=== PATIENT | male | born 1950 | race Caucasian/White ===

== ENCOUNTER 2024-01-13 21:14 | Inpatient (IN) ==
[2024-01-13] MEDS ORDERED: IOPAMIDOL 100 ML BOTTLE IV ONE (21:15)
[2024-01-13] MEDS: 0.9 % SODIUM CHLORIDE 1,000 ML IV ONE (21:30)
[2024-01-13] MEDS: methylPREDNISolone SOD SUCC 125 MG/2 ML VIAL IV ONE (21:54)
[2024-01-13 23:11] LABS: ALT/SGPT < 5 U/L (<40); AST/SGOT 16 U/L (<40); Albumin 2.1 gm/dL (3.2-5.2); Albumin/Globulin Ratio 0.9 (1.0-2.3); Alkaline Phosphatase 131 U/L (39-117); Bilirubin,Total 0.8 mg/dL (0.1-1.0); Blood Urea Nitrogen 22 mg/dL (8-23); Calcium 7.6 mg/dL (8.6-10.4); Carbon Dioxide 15 mmol/L (22-30); Chloride 91 mmol/L (96-108); Globulin 2.4 gm/dL (2.2-3.7); Glomerular Filtration Rate 88; Glucose 289 mg/dL (70-105)
[2024-01-13 23:20] LABS: Basophils # (Auto) 0 K/mcL (0.00-0.30); Basophils % (Auto) 0 % (0.0-2.0); Eosinophils # (Auto) 0 K/mcL (0.00-0.70); Eosinophils % (Auto) 0 % (0.0-7.0); Hematocrit 31.1 % (40.1-51.0); Hemoglobin 9.9 g/dL (13.7-17.5); Lymphocytes # (Auto) 0.45 K/mcL (1.50-4.80); Lymphocytes % (Auto) 4.9 % (15.5-49.0); Mean Cell Volume 96.6 fL (80.0-100.0); Mean Corpuscular HGB Conc 31.8 g/dL (31.0-36.0); Mean Platelet Volume 8.9 fL (8.8-12.5); Monocytes # (Auto) 0.58 K/mcL (0.10-0.90); Monocytes % (Auto) 6.3 % (1.0-12.0); Neutrophils % (Auto) 83.6 % (38.0-78.0); Platelet Count 458 K/mcL (140-440); RBC 3.22 M/mcL (4.63-6.08); WBC 9.2 K/mcL (4.5-11.0)
[2024-01-13] MEDS: fentaNYL 100 MCG/2 ML VIAL IV ONE (23:24)
[2024-01-14] MEDS: cefTRIAXone 2 GM in DEXTROSE 5% IN WATER 50 ML IV ONE (01:16)
[2024-01-14] MEDS: AZITHROMYCIN 500 MG in DEXTROSE 5% IN WATER 250 ML IV ONE (01:45)
[2024-01-14] MEDS ORDERED: fentaNYL 100 MCG/2 ML VIAL IV PRN (01:47)
[2024-01-14] MEDS: 0.9 % SODIUM CHLORIDE 1,000 ML IV SCH (02:50)
[2024-01-14] MEDS: IPRATROPIUM/ALBUTEROL 3 ML AMPUL.NEB NEB PRN (07:37)
[2024-01-14] MEDS ORDERED: DEXTROSE 31 GM ORAL.SUSP PO PRN (08:40)
[2024-01-14] MEDS ORDERED: ONDANSETRON 4 MG/2 ML VIAL IV PRN (08:40)
[2024-01-14] MEDS ORDERED: DEXTROSE 50% 50 ML VIAL IV PRN (08:40)
[2024-01-14 09:48] LABS: Lactate Dehydrogenase 189 U/L (135-225)
[2024-01-14 10:13] LABS: Appearance,Urine Clear (Clear); Bilirubin,Urine Negative (Negative); Color,Urine Yellow; Culture Indicated,Urine No; Glucose,Urine (UA) 500 mg/dL (Negative); Ketones,Urine >=160 mg/dL (Negative); Leukocyte Esterase,Urine Negative /uL (Negative); Nitrate,Urine Negative (Negative); Protein,Urine Trace mg/dL (Negative); Urine Blood Negative ery/mcL (Negative); Urine RBC 0 /hpf (0-3); Urine Squamous Epithelial Cell 0 /hpf (0-4); Urine WBC 0 /hpf (0-4); Urobilinogen,Urine Normal
[2024-01-14] MEDS: LEVOTHYROXINE 25 MCG TABLET PO SCH (10:43)
[2024-01-14] MEDS: INSULIN, 75/25 NPL/LISPRO 1 UNIT/0.01 ML UNIT SQ SCH (10:43)
[2024-01-14] MEDS: ESCITALOPRAM 10 MG TABLET PO SCH (10:43)
[2024-01-14] MEDS: oxyCODONE IR 5 MG TABLET PO PRN (10:43)
[2024-01-14] MEDS: DOCUSATE SODIUM 100 MG CAPSULE PO SCH (10:43)
[2024-01-14] MEDS: LEVOTHYROXINE SODIUM 112 MCG TABLET PO SCH (10:43)
[2024-01-14] MEDS: morphine 4 MG/ML VIAL IV PRN (11:00)
[2024-01-14] MEDS: 0.9 % SODIUM CHLORIDE 10 ML SYRINGE IV SCH (13:14)
[2024-01-14] MEDS: INSULIN LISPRO 1 UNIT/0.01 ML UNIT SQ SCH (13:16)
[2024-01-14] MEDS: ENOXAPARIN 40 MG/0.4 ML SYRINGE SQ SCH (14:58)
[2024-01-14] MEDS: MIDAZOLAM 2 MG/2 ML VIAL IV ONE (15:15)
[2024-01-14] MEDS: fentaNYL 100 MCG/2 ML VIAL IV ONE (15:15)
[2024-01-14 15:43] LABS: Amylase,Pleural Fluid 1 U/L; Triglycerides,Body Fluid 15 mg/dl
[2024-01-14] MEDS ORDERED: IOPAMIDOL 100 ML BOTTLE IV ONE (16:08)
[2024-01-14 16:33] LABS: Crystals,Body Fluid None Seen (None Seen)
[2024-01-14 16:37] LABS: Glucose,Pleural Fluid 2 mg/dL
[2024-01-14] MEDS: FUROSEMIDE 20 MG/2 ML VIAL IV SCH (17:22)
[2024-01-14] MEDS: AZITHROMYCIN 500 MG in DEXTROSE 5% IN WATER 250 ML IV SCH (17:23)
[2024-01-14] MEDS: cefTRIAXone 1 GM VIAL IV SCH (17:23)
[2024-01-14 18:26] LABS: Appearance,Pleural Fluid Purulent; Color,Pleural Fluid White; Nucleated Cells,Pleural Fld 562800 /cumm
[2024-01-14] MEDS: ACETAMINOPHEN 325 MG TABLET PO PRN (19:22)
[2024-01-14] MEDS ORDERED: PRAZOSIN 2 MG CAPSULE PO SCH (21:00)
[2024-01-14] MEDS: LIDOCAINE 4% TOP PATCH TOPICAL SCH (21:04)
[2024-01-14] MEDS: SENNOSIDES 1 TABLET PO SCH (21:04)
[2024-01-15 06:17] LABS: Basophils # (Auto) 0 K/mcL (0.00-0.30); Basophils % (Auto) 0 % (0.0-2.0); Eosinophils # (Auto) 0 K/mcL (0.00-0.70); Eosinophils % (Auto) 0 % (0.0-7.0); Hematocrit 33.1 % (40.1-51.0); Lymphocytes # (Auto) 0.96 K/mcL (1.50-4.80); Lymphocytes % (Auto) 5.1 % (15.5-49.0); Mean Cell Volume 91.7 fL (80.0-100.0); Mean Corpuscular HGB Conc 33.2 g/dL (31.0-36.0); Mean Platelet Volume 8.7 fL (8.8-12.5); Monocytes # (Auto) 0.84 K/mcL (0.10-0.90); Monocytes % (Auto) 4.5 % (1.0-12.0); Platelet Count 540 K/mcL (140-440); RBC 3.61 M/mcL (4.63-6.08); Red Cell Distribution Width 14.2 % (11.5-14.5); WBC 18.7 K/mcL (4.5-11.0)
[2024-01-15 06:40] LABS: ALT/SGPT 6 U/L (<40); AST/SGOT 30 U/L (<40); Albumin 2.5 gm/dL (3.2-5.2); Albumin/Globulin Ratio 0.9 (1.0-2.3); Alkaline Phosphatase 142 U/L (39-117); Bilirubin,Total 0.4 mg/dL (0.1-1.0); Blood Urea Nitrogen 20 mg/dL (8-23); Carbon Dioxide 26 mmol/L (22-30); Chloride 92 mmol/L (96-108); Globulin 2.8 gm/dL (2.2-3.7); Glomerular Filtration Rate 93; Glucose 82 mg/dL (70-105)
[2024-01-15 07:27] LABS: Hemoglobin A1C 9.9 % Hgb (4.0-6.0)
[2024-01-15] MEDS: ONDANSETRON 4 MG/2 ML VIAL IV PRN ×2 (08:18→17:24)
[2024-01-15] MEDS ORDERED: DEXTROSE 50% 50 ML VIAL IV PRN (08:50)
[2024-01-15] MEDS ORDERED: DEXTROSE 31 GM ORAL.SUSP PO PRN (08:50)
[2024-01-15] MEDS: PANTOPRAZOLE 40 MG VIAL IV SCH (09:23)
[2024-01-15] MEDS: MAGNESIUM HYDROXIDE 30 ML ORAL.SUSP PO PRN (09:23)
[2024-01-15] MEDS: POTASSIUM CHLORIDE 20 MEQ in DEXTROSE 5% IN WATER 250 ML IV ONE (11:00)
[2024-01-15] MEDS: INSULIN LISPRO 1 UNIT/0.01 ML UNIT SQ SCH (12:14)
[2024-01-16 05:44] LABS: Basophils # (Auto) 0.01 K/mcL (0.00-0.30); Basophils % (Auto) 0.1 % (0.0-2.0); Eosinophils # (Auto) 0.01 K/mcL (0.00-0.70); Eosinophils % (Auto) 0.1 % (0.0-7.0); Hematocrit 30.9 % (40.1-51.0); Hemoglobin 10.3 g/dL (13.7-17.5); Lymphocytes # (Auto) 0.86 K/mcL (1.50-4.80); Lymphocytes % (Auto) 5.5 % (15.5-49.0); Mean Cell Volume 91.7 fL (80.0-100.0); Mean Corpuscular HGB Conc 33.3 g/dL (31.0-36.0); Mean Platelet Volume 8.5 fL (8.8-12.5); Monocytes # (Auto) 1.12 K/mcL (0.10-0.90); Monocytes % (Auto) 7.2 % (1.0-12.0); Neutrophils % (Auto) 82.7 % (38.0-78.0); Platelet Count 424 K/mcL (140-440); RBC 3.37 M/mcL (4.63-6.08); Red Cell Distribution Width 13.8 % (11.5-14.5); WBC 15.6 K/mcL (4.5-11.0)
[2024-01-16 06:00] LABS: ALT/SGPT 10 U/L (<40); AST/SGOT 28 U/L (<40); Albumin 2.4 gm/dL (3.2-5.2); Albumin/Globulin Ratio 0.9 (1.0-2.3); Alkaline Phosphatase 129 U/L (39-117); Bilirubin,Total 0.4 mg/dL (0.1-1.0); Blood Urea Nitrogen 17 mg/dL (8-23); Calcium 7.7 mg/dL (8.6-10.4); Carbon Dioxide 30 mmol/L (22-30); Chloride 89 mmol/L (96-108); Globulin 2.6 gm/dL (2.2-3.7); Glomerular Filtration Rate 99; Glucose 139 mg/dL (70-105)
[2024-01-16] MEDS: metroNIDAZOLE 500 MG/100 ML BAG IV SCH (09:38)
[2024-01-16] MEDS: HYDROcodone/APAP 10/325MG TABLET PO PRN (10:45)
[2024-01-17 06:58] LABS: ALT/SGPT 7 U/L (<40); AST/SGOT 23 U/L (<40); Albumin 2.3 gm/dL (3.2-5.2); Albumin/Globulin Ratio 0.9 (1.0-2.3); Alkaline Phosphatase 125 U/L (39-117); Bilirubin,Total 0.4 mg/dL (0.1-1.0); Blood Urea Nitrogen 18 mg/dL (8-23); Calcium 7.4 mg/dL (8.6-10.4); Carbon Dioxide 30 mmol/L (22-30); Chloride 88 mmol/L (96-108); Globulin 2.5 gm/dL (2.2-3.7); Glomerular Filtration Rate 99; Glucose 173 mg/dL (70-105)
[2024-01-17 07:20] LABS: Basophils # (Auto) 0.02 K/mcL (0.00-0.30); Basophils % (Auto) 0.2 % (0.0-2.0); Eosinophils # (Auto) 0.04 K/mcL (0.00-0.70); Eosinophils % (Auto) 0.3 % (0.0-7.0); Hematocrit 31.5 % (40.1-51.0); Hemoglobin 10.2 g/dL (13.7-17.5); Lymphocytes # (Auto) 0.64 K/mcL (1.50-4.80); Lymphocytes % (Auto) 5.1 % (15.5-49.0); Mean Cell Volume 93.5 fL (80.0-100.0); Mean Corpuscular HGB Conc 32.4 g/dL (31.0-36.0); Mean Platelet Volume 10.1 fL (8.8-12.5); Monocytes # (Auto) 0.75 K/mcL (0.10-0.90); Monocytes % (Auto) 5.9 % (1.0-12.0); Neutrophils % (Auto) 84.3 % (38.0-78.0); Platelet Count 303 K/mcL (140-440); RBC 3.37 M/mcL (4.63-6.08); Red Cell Distribution Width 13.8 % (11.5-14.5); WBC 12.6 K/mcL (4.5-11.0)
[2024-01-17] MEDS: SODIUM CHLORIDE 1 GM TABLET PO SCH (14:41)
[2024-01-18 06:12] LABS: Basophils # (Auto) 0.03 K/mcL (0.00-0.30); Basophils % (Auto) 0.2 % (0.0-2.0); Eosinophils # (Auto) 0.08 K/mcL (0.00-0.70); Eosinophils % (Auto) 0.6 % (0.0-7.0); Hemoglobin 10.2 g/dL (13.7-17.5); Lymphocytes # (Auto) 0.81 K/mcL (1.50-4.80); Lymphocytes % (Auto) 5.9 % (15.5-49.0); Mean Cell Volume 92.8 fL (80.0-100.0); Mean Corpuscular HGB Conc 32.9 g/dL (31.0-36.0); Mean Platelet Volume 8.5 fL (8.8-12.5); Monocytes # (Auto) 0.95 K/mcL (0.10-0.90); Monocytes % (Auto) 6.9 % (1.0-12.0); Neutrophils % (Auto) 81.6 % (38.0-78.0); Platelet Count 365 K/mcL (140-440); RBC 3.34 M/mcL (4.63-6.08); Red Cell Distribution Width 13.6 % (11.5-14.5); WBC 13.8 K/mcL (4.5-11.0)
[2024-01-18 07:46] LABS: ALT/SGPT 6 U/L (<40); AST/SGOT 18 U/L (<40); Albumin 2.3 gm/dL (3.2-5.2); Alkaline Phosphatase 110 U/L (39-117); Bilirubin,Total 0.4 mg/dL (0.1-1.0); Blood Urea Nitrogen 17 mg/dL (8-23); Calcium 7.3 mg/dL (8.6-10.4); Carbon Dioxide 31 mmol/L (22-30); Chloride 91 mmol/L (96-108); Globulin 2.4 gm/dL (2.2-3.7); Glomerular Filtration Rate 107; Glucose 126 mg/dL (70-105)
[2024-01-18] MEDS: traZODone HCL 100 MG TABLET PO PRN (19:11)
[2024-01-19 06:22] LABS: Hematocrit 29.2 % (40.1-51.0); Hemoglobin 9.8 g/dL (13.7-17.5); Mean Cell Volume 92.7 fL (80.0-100.0); Mean Corpuscular HGB Conc 33.6 g/dL (31.0-36.0); Mean Platelet Volume 8.4 fL (8.8-12.5); Platelet Count 338 K/mcL (140-440); RBC 3.15 M/mcL (4.63-6.08); Red Cell Distribution Width 13.7 % (11.5-14.5); WBC 13.6 K/mcL (4.5-11.0)
[2024-01-19 06:38] LABS: ALT/SGPT 7 U/L (<40); AST/SGOT 21 U/L (<40); Albumin 2.3 gm/dL (3.2-5.2); Alkaline Phosphatase 106 U/L (39-117); Bilirubin,Direct 0.2 mg/dL (<0.3); Bilirubin,Total 0.4 mg/dL (0.1-1.0); Blood Urea Nitrogen 17 mg/dL (8-23); Calcium 7.3 mg/dL (8.6-10.4); Carbon Dioxide 27 mmol/L (22-30); Chloride 92 mmol/L (96-108); Globulin 2.2 gm/dL (2.2-3.7); Glomerular Filtration Rate 107; Glucose 177 mg/dL (70-105); Lactate Dehydrogenase 149 U/L (135-225); Phosphorous 2.3 mg/dL (2.5-4.5); Triglycerides 87 mg/dL (<150); Uric Acid 2.7 mg/dL (2.5-8.0)
[2024-01-19 06:43] LABS: Band Neutrophils % 1 % (0-10); Eosinophils % (Manual) 1 % (0-7); Lymphocytes % 6 % (15-49); Monocytes % (Manual) 3 % (1-12); Platelet Estimate NORMAL (Normal); RBC Morphology NORMAL (Normal); Reactive Lymphocytes 2 % (0-2); Segmented Neutrophils % 87 % (38-78)
[2024-01-19 08:32] LABS: Thyroid Stimulating Hormone 2.78 uIU/mL (0.27-5.01)
[2024-01-19] MEDS ORDERED: IOPAMIDOL 100 ML BOTTLE IV ONE (08:47)
[2024-01-19 11:28] LABS: Sodium, Urine Random 97 mmol/L
[2024-01-19 11:43] LABS: Osmolality,Urine 650 mOSM/kg (80-1000)
[2024-01-20 07:07] LABS: ALT/SGPT 6 U/L (<40); AST/SGOT 19 U/L (<40); Albumin 2.1 gm/dL (3.2-5.2); Alkaline Phosphatase 92 U/L (39-117); Bilirubin,Direct < 0.2 mg/dL (0-0.3); Bilirubin,Total 0.4 mg/dL (0.1-1.0); Blood Urea Nitrogen 14 mg/dL (8-23); Calcium 7.4 mg/dL (8.6-10.4); Carbon Dioxide 28 mmol/L (22-30); Chloride 94 mmol/L (96-108); Globulin 2.2 gm/dL (2.2-3.7); Glomerular Filtration Rate 107; Glucose 154 mg/dL (70-105); Lactate Dehydrogenase 153 U/L (135-225); Phosphorous 2.4 mg/dL (2.5-4.5); Triglycerides 84 mg/dL (<150); Uric Acid 2.9 mg/dL (2.5-8.0)
[2024-01-20 07:35] LABS: Basophils # (Auto) 0.03 K/mcL (0.00-0.30); Basophils % (Auto) 0.3 % (0.0-2.0); Eosinophils # (Auto) 0.13 K/mcL (0.00-0.70); Eosinophils % (Auto) 1.3 % (0.0-7.0); Hematocrit 26.8 % (40.1-51.0); Hemoglobin 8.7 g/dL (13.7-17.5); Lymphocytes # (Auto) 1.24 K/mcL (1.50-4.80); Lymphocytes % (Auto) 12.3 % (15.5-49.0); Mean Cell Volume 94.4 fL (80.0-100.0); Mean Corpuscular HGB Conc 32.5 g/dL (31.0-36.0); Monocytes # (Auto) 0.87 K/mcL (0.10-0.90); Monocytes % (Auto) 8.6 % (1.0-12.0); Neutrophils % (Auto) 71.5 % (38.0-78.0); Platelet Count 315 K/mcL (140-440); RBC 2.84 M/mcL (4.63-6.08); Red Cell Distribution Width 14.3 % (11.5-14.5); WBC 10.1 K/mcL (4.5-11.0)
[2024-01-20] MEDS: SODIUM CHLORIDE 1 GM TABLET PO SCH (08:36)
[2024-01-21 07:12] LABS: Blood Urea Nitrogen 14 mg/dL (8-23); Calcium 7.5 mg/dL (8.6-10.4); Carbon Dioxide 29 mmol/L (22-30); Chloride 96 mmol/L (96-108); Glomerular Filtration Rate 107; Glucose 137 mg/dL (70-105)
[2024-01-21 07:52] LABS: Basophils # (Auto) 0.03 K/mcL (0.00-0.30); Basophils % (Auto) 0.3 % (0.0-2.0); Eosinophils # (Auto) 0.11 K/mcL (0.00-0.70); Hematocrit 26.7 % (40.1-51.0); Hemoglobin 8.8 g/dL (13.7-17.5); Lymphocytes # (Auto) 0.98 K/mcL (1.50-4.80); Lymphocytes % (Auto) 8.5 % (15.5-49.0); Mean Cell Volume 91.8 fL (80.0-100.0); Mean Platelet Volume 8.5 fL (8.8-12.5); Monocytes # (Auto) 0.93 K/mcL (0.10-0.90); Monocytes % (Auto) 8.1 % (1.0-12.0); Neutrophils % (Auto) 77.3 % (38.0-78.0); Platelet Count 367 K/mcL (140-440); RBC 2.91 M/mcL (4.63-6.08); Red Cell Distribution Width 14.4 % (11.5-14.5); WBC 11.5 K/mcL (4.5-11.0)
[2024-01-22 06:43] LABS: Eosinophils # (Auto) 0.08 K/mcL (0.00-0.70); Eosinophils % (Auto) 0.8 % (0.0-7.0); Hematocrit 26.8 % (40.1-51.0); Hemoglobin 8.7 g/dL (13.7-17.5); Lymphocytes # (Auto) 0.83 K/mcL (1.50-4.80); Lymphocytes % (Auto) 8.1 % (15.5-49.0); Mean Corpuscular HGB Conc 32.5 g/dL (31.0-36.0); Mean Platelet Volume 8.3 fL (8.8-12.5); Monocytes # (Auto) 0.76 K/mcL (0.10-0.90); Monocytes % (Auto) 7.4 % (1.0-12.0); Neutrophils % (Auto) 78.2 % (38.0-78.0); Platelet Count 380 K/mcL (140-440); RBC 2.82 M/mcL (4.63-6.08); Red Cell Distribution Width 14.7 % (11.5-14.5); WBC 10.3 K/mcL (4.5-11.0)
[2024-01-22 07:37] LABS: ALT/SGPT 7 U/L (<40); AST/SGOT 21 U/L (<40); Albumin 2.3 gm/dL (3.2-5.2); Alkaline Phosphatase 91 U/L (39-117); Bilirubin,Direct < 0.2 mg/dL (0-0.3); Bilirubin,Total 0.4 mg/dL (0.1-1.0); Blood Urea Nitrogen 14 mg/dL (8-23); Calcium 7.4 mg/dL (8.6-10.4); Carbon Dioxide 28 mmol/L (22-30); Chloride 95 mmol/L (96-108); Globulin 2.2 gm/dL (2.2-3.7); Glomerular Filtration Rate 107; Glucose 242 mg/dL (70-105); Lactate Dehydrogenase 189 U/L (135-225); Phosphorous 2.1 mg/dL (2.5-4.5); Triglycerides 81 mg/dL (<150); Uric Acid 2.6 mg/dL (2.5-8.0)
[2024-01-22] MEDS ORDERED: MELATONIN 3 MG TABLET PO SCH (19:00)
[2024-01-22] MEDS ORDERED: traZODone HCL 100 MG TABLET PO SCH (19:30)
== END 2024-01-22 15:55 | disposition short-term general hospital (02) | DRG 177 ==
LOC: ED 21:14 → ICU 01-14 02:19 → MEDSUR 01-17 18:11
PROVIDERS: ADMIT Internal Medicine; ATTEND Internal Medicine

== ENCOUNTER 2024-02-23 11:12 | Inpatient (IN) ==
[2024-02-23] MEDS ORDERED: IOPAMIDOL 100 ML BOTTLE IV ONE (11:13)
[2024-02-23] MEDS: morphine 4 MG/ML VIAL IV ONE (12:25)
[2024-02-23] MEDS: 0.9 % SODIUM CHLORIDE 1,000 ML IV ONE (12:25)
[2024-02-23 12:36] LABS: Basophils # (Auto) 0.06 K/mcL (0.00-0.30); Basophils % (Auto) 0.6 % (0.0-2.0); Eosinophils # (Auto) 0.09 K/mcL (0.00-0.70); Eosinophils % (Auto) 0.8 % (0.0-7.0); Hematocrit 33.2 % (40.1-51.0); Hemoglobin 10.5 g/dL (13.7-17.5); Lymphocytes # (Auto) 0.93 K/mcL (1.50-4.80); Lymphocytes % (Auto) 8.7 % (15.5-49.0); Mean Cell Volume 101.2 fL (80.0-100.0); Mean Corpuscular HGB Conc 31.6 g/dL (31.0-36.0); Mean Platelet Volume 8.1 fL (8.8-12.5); Monocytes # (Auto) 0.43 K/mcL (0.10-0.90); Neutrophils % (Auto) 85.4 % (38.0-78.0); Platelet Count 361 K/mcL (140-440); RBC 3.28 M/mcL (4.63-6.08); Red Cell Distribution Width 15.8 % (11.5-14.5); WBC 10.7 K/mcL (4.5-11.0)
[2024-02-23 12:46] LABS: ALT/SGPT 6 U/L (<40); AST/SGOT 16 U/L (<40); Albumin 3.2 gm/dL (3.2-5.2); Albumin/Globulin Ratio 1.3 (1.0-2.3); Alkaline Phosphatase 140 U/L (39-117); Bilirubin,Total 0.2 mg/dL (0.1-1.0); Blood Urea Nitrogen 14 mg/dL (8-23); Calcium 7.7 mg/dL (8.6-10.4); Carbon Dioxide 24 mmol/L (22-30); Chloride 99 mmol/L (96-108); Globulin 2.5 gm/dL (2.2-3.7); Glomerular Filtration Rate 107; Glucose 264 mg/dL (70-105)
[2024-02-23 13:46] LABS: Appearance,Urine Clear (Clear); Bacteria,Urine 0 /hpf (0); Bilirubin,Urine Negative (Negative); Color,Urine Yellow; Culture Indicated,Urine No; Glucose,Urine (UA) 250 mg/dL (Negative); Ketones,Urine Negative (Negative); Leukocyte Esterase,Urine Negative /uL (Negative); Nitrate,Urine Negative (Negative); PH,Urine 5.5 (5.0-9.0); Protein,Urine 30 mg/dL (Negative); Specific Gravity,Urine >= 1.030 (1.000-1.035); Urine Blood Negative ery/mcL (Negative); Urine RBC 0 /hpf (0-3); Urine Squamous Epithelial Cell 0 /hpf (0-4); Urine WBC 1 /hpf (0-4); Urobilinogen,Urine Normal
[2024-02-23] MEDS ORDERED: VANCOMYCIN PER PHARMACY IV SCH (15:08)
[2024-02-23] MEDS: VANCOMYCIN 1,000 MG in 0.9 % SODIUM CHLORIDE 250 ML IV SCH (16:47)
[2024-02-23] MEDS: CEFEPIME 2 GM VIAL IV SCH (16:55)
[2024-02-23] MEDS: POLYETHYLENE GLYCOL 3350 17 GM PACKET PO ONE (16:55)
[2024-02-23] MEDS: LACTATED RINGERS 1,000 ML IV SCH (18:02)
[2024-02-23] MEDS: SENNOSIDES 1 TABLET PO ONE (18:08)
[2024-02-23] MEDS: SENNOSIDES 1 TABLET PO SCH ×2 (18:59→20:08)
[2024-02-23] MEDS: INSULIN, 75/25 NPL/LISPRO 1 UNIT/0.01 ML UNIT SQ ONE (19:49)
[2024-02-23] MEDS: DOCUSATE SODIUM 100 MG CAPSULE PO SCH (20:06)
[2024-02-23] MEDS: PRAZOSIN 1 MG CAPSULE PO SCH (20:06)
[2024-02-23] MEDS: traZODone HCL 50 MG TABLET PO SCH (20:06)
[2024-02-23] MEDS: oxyCODONE IR 5 MG TABLET PO PRN (20:32)
[2024-02-23] MEDS: 0.9 % SODIUM CHLORIDE 10 ML SYRINGE IV SCH (22:03)
[2024-02-23] MEDS: ACETAMINOPHEN 325 MG TABLET PO PRN (22:07)
[2024-02-23] MEDS: IBUPROFEN 800 MG TABLET PO ONE (22:59)
[2024-02-24] MEDS: INSULIN, 75/25 NPL/LISPRO 1 UNIT/0.01 ML UNIT SQ SCH (07:17)
[2024-02-24 07:26] LABS: Basophils # (Auto) 0.07 K/mcL (0.00-0.30); Eosinophils # (Auto) 0.18 K/mcL (0.00-0.70); Eosinophils % (Auto) 2.6 % (0.0-7.0); Hematocrit 29.4 % (40.1-51.0); Hemoglobin 9.5 g/dL (13.7-17.5); Lymphocytes # (Auto) 1.42 K/mcL (1.50-4.80); Lymphocytes % (Auto) 20.5 % (15.5-49.0); Mean Cell Volume 99.3 fL (80.0-100.0); Mean Corpuscular HGB Conc 32.3 g/dL (31.0-36.0); Mean Platelet Volume 8.3 fL (8.8-12.5); Monocytes % (Auto) 5.8 % (1.0-12.0); Neutrophils % (Auto) 69.5 % (38.0-78.0); Platelet Count 353 K/mcL (140-440); RBC 2.96 M/mcL (4.63-6.08); Red Cell Distribution Width 15.9 % (11.5-14.5); WBC 6.9 K/mcL (4.5-11.0)
[2024-02-24] MEDS: LEVOTHYROXINE 25 MCG TABLET PO SCH (07:38)
[2024-02-24] MEDS: LEVOTHYROXINE SODIUM 112 MCG TABLET PO SCH (07:38)
[2024-02-24 07:52] LABS: ALT/SGPT < 5 U/L (<40); AST/SGOT 16 U/L (<40); Albumin/Globulin Ratio 1.4 (1.0-2.3); Alkaline Phosphatase 106 U/L (39-117); Bilirubin,Total 0.3 mg/dL (0.1-1.0); Blood Urea Nitrogen 11 mg/dL (8-23); Calcium 7.7 mg/dL (8.6-10.4); Carbon Dioxide 24 mmol/L (22-30); Chloride 101 mmol/L (96-108); Globulin 2.2 gm/dL (2.2-3.7); Glomerular Filtration Rate 107; Glucose 92 mg/dL (70-105)
[2024-02-24] MEDS: ENOXAPARIN 40 MG/0.4 ML SYRINGE SQ SCH (09:06)
[2024-02-24] MEDS: ESCITALOPRAM 10 MG TABLET PO SCH (09:07)
[2024-02-24] MEDS: ONDANSETRON 4 MG/2 ML VIAL IV PRN (09:07)
[2024-02-24] MEDS ORDERED: ONDANSETRON 4 MG ODT TABLET SL PRN (18:03)
[2024-02-24] MEDS: IBUPROFEN 800 MG TABLET PO SCH (19:26)
[2024-02-24] MEDS: POLYETHYLENE GLYCOL 3350 17 GM PACKET PO SCH (21:12)
[2024-02-25 06:46] LABS: Basophils # (Auto) 0.07 K/mcL (0.00-0.30); Basophils % (Auto) 1.4 % (0.0-2.0); Eosinophils # (Auto) 0.18 K/mcL (0.00-0.70); Eosinophils % (Auto) 3.6 % (0.0-7.0); Hematocrit 29.8 % (40.1-51.0); Hemoglobin 9.5 g/dL (13.7-17.5); Lymphocytes # (Auto) 1.19 K/mcL (1.50-4.80); Lymphocytes % (Auto) 24.1 % (15.5-49.0); Mean Cell Volume 99.3 fL (80.0-100.0); Mean Corpuscular HGB Conc 31.9 g/dL (31.0-36.0); Mean Platelet Volume 8.3 fL (8.8-12.5); Monocytes # (Auto) 0.36 K/mcL (0.10-0.90); Monocytes % (Auto) 7.3 % (1.0-12.0); Platelet Count 325 K/mcL (140-440); Red Cell Distribution Width 16.1 % (11.5-14.5); WBC 4.9 K/mcL (4.5-11.0)
[2024-02-25 07:40] LABS: ALT/SGPT 6 U/L (<40); AST/SGOT 19 U/L (<40); Albumin 2.8 gm/dL (3.2-5.2); Albumin/Globulin Ratio 1.2 (1.0-2.3); Alkaline Phosphatase 102 U/L (39-117); Bilirubin,Total 0.3 mg/dL (0.1-1.0); Blood Urea Nitrogen 10 mg/dL (8-23); Calcium 8.2 mg/dL (8.6-10.4); Carbon Dioxide 26 mmol/L (22-30); Chloride 100 mmol/L (96-108); Globulin 2.4 gm/dL (2.2-3.7); Glomerular Filtration Rate 107; Glucose 83 mg/dL (70-105)
[2024-02-25] MEDS: oxyCODONE IR 5 MG TABLET PO SCH (09:14)
[2024-02-25] MEDS: BISACODYL 10 MG SUPP.RECT PR PRN (13:58)
[2024-02-25] MEDS: LEVOFLOXACIN 750 MG/150 ML BAG IV SCH (14:03)
[2024-02-25] MEDS: oxyCODONE IR 5 MG TABLET PO ONE (22:02)
[2024-02-26 06:23] LABS: Basophils # (Auto) 0.05 K/mcL (0.00-0.30); Basophils % (Auto) 0.9 % (0.0-2.0); Eosinophils # (Auto) 0.12 K/mcL (0.00-0.70); Eosinophils % (Auto) 2.1 % (0.0-7.0); Hematocrit 28.8 % (40.1-51.0); Hemoglobin 9.3 g/dL (13.7-17.5); Lymphocytes # (Auto) 1.01 K/mcL (1.50-4.80); Lymphocytes % (Auto) 17.3 % (15.5-49.0); Mean Cell Volume 98.6 fL (80.0-100.0); Mean Corpuscular HGB Conc 32.3 g/dL (31.0-36.0); Mean Platelet Volume 8.3 fL (8.8-12.5); Monocytes # (Auto) 0.56 K/mcL (0.10-0.90); Monocytes % (Auto) 9.6 % (1.0-12.0); Neutrophils % (Auto) 69.2 % (38.0-78.0); Platelet Count 290 K/mcL (140-440); RBC 2.92 M/mcL (4.63-6.08); Red Cell Distribution Width 15.9 % (11.5-14.5); WBC 5.9 K/mcL (4.5-11.0)
[2024-02-26 07:00] LABS: ALT/SGPT < 5 U/L (<40); AST/SGOT 16 U/L (<40); Albumin/Globulin Ratio 1.4 (1.0-2.3); Alkaline Phosphatase 102 U/L (39-117); Bilirubin,Total 0.3 mg/dL (0.1-1.0); Blood Urea Nitrogen 12 mg/dL (8-23); Calcium 8.2 mg/dL (8.6-10.4); Carbon Dioxide 28 mmol/L (22-30); Chloride 95 mmol/L (96-108); Globulin 2.2 gm/dL (2.2-3.7); Glomerular Filtration Rate 99; Glucose 179 mg/dL (70-105)
[2024-02-26] MEDS: KETOROLAC 30 MG/ML VIAL IV PRN (10:42)
[2024-02-26] MEDS: ACETAMINOPHEN 1,000 MG/100 ML BAG IV PRN (13:59)
[2024-02-26] MEDS ORDERED: DEXTROSE 50% 50 ML VIAL IV PRN (19:33)
[2024-02-26] MEDS ORDERED: DEXTROSE 31 GM ORAL.SUSP PO PRN (19:33)
[2024-02-26] MEDS: oxyCODONE IR 5 MG TABLET PO PRN (20:13)
[2024-02-26] MEDS: INSULIN LISPRO 1 UNIT/0.01 ML UNIT SQ SCH (20:59)
[2024-02-27 06:30] LABS: Basophils # (Auto) 0.04 K/mcL (0.00-0.30); Basophils % (Auto) 0.5 % (0.0-2.0); Eosinophils # (Auto) 0.15 K/mcL (0.00-0.70); Eosinophils % (Auto) 1.9 % (0.0-7.0); Hematocrit 23.5 % (40.1-51.0); Hemoglobin 7.5 g/dL (13.7-17.5); Lymphocytes # (Auto) 0.91 K/mcL (1.50-4.80); Lymphocytes % (Auto) 11.7 % (15.5-49.0); Mean Cell Volume 100.9 fL (80.0-100.0); Mean Corpuscular HGB Conc 31.9 g/dL (31.0-36.0); Mean Platelet Volume 8.3 fL (8.8-12.5); Monocytes # (Auto) 0.55 K/mcL (0.10-0.90); Monocytes % (Auto) 7.1 % (1.0-12.0); Neutrophils % (Auto) 77.4 % (38.0-78.0); Platelet Count 263 K/mcL (140-440); RBC 2.33 M/mcL (4.63-6.08); Red Cell Distribution Width 16.4 % (11.5-14.5); WBC 7.8 K/mcL (4.5-11.0)
[2024-02-27 06:58] LABS: ALT/SGPT < 5 U/L (<40); AST/SGOT 15 U/L (<40); Albumin 2.7 gm/dL (3.2-5.2); Albumin/Globulin Ratio 1.4 (1.0-2.3); Alkaline Phosphatase 84 U/L (39-117); Bilirubin,Total 0.3 mg/dL (0.1-1.0); Blood Urea Nitrogen 19 mg/dL (8-23); Calcium 7.9 mg/dL (8.6-10.4); Carbon Dioxide 26 mmol/L (22-30); Chloride 97 mmol/L (96-108); Globulin 1.9 gm/dL (2.2-3.7); Glomerular Filtration Rate 99; Glucose 189 mg/dL (70-105)
[2024-02-27] MEDS: LEVOFLOXACIN 750 MG TABLET PO SCH (08:06)
[2024-02-27] MEDS: INSULIN, 75/25 NPL/LISPRO 1 UNIT/0.01 ML UNIT SQ SCH (08:08)
[2024-02-27] MEDS: PNEUMOCOCCAL 23-VAL P-SAC VAC 0.5 ML SYRINGE IM ONE (09:51)
== END 2024-02-27 11:24 | DRG 194 ==
LOC: ED 11:12 → MEDSUR 16:26
PROVIDERS: ADMIT Student in an Organized Health Care Education/Training Program; ATTEND Student in an Organized Health Care Education/Training Program

== ENCOUNTER 2024-03-04 08:18 | Observation (INO) ==
[2024-03-04] MEDS: PANTOPRAZOLE 40 MG VIAL IV ONE ×2 (09:18→17:56)
[2024-03-04 10:05] LABS: ALT/SGPT 7 U/L (<40); AST/SGOT 24 U/L (<40); Albumin 3.7 gm/dL (3.2-5.2); Albumin/Globulin Ratio 1.7 (1.0-2.3); Alkaline Phosphatase 86 U/L (39-117); Basophils # (Auto) 0.06 K/mcL (0.00-0.30); Bilirubin,Total 0.2 mg/dL (0.1-1.0); Blood Urea Nitrogen 16 mg/dL (8-23); Calcium 8.4 mg/dL (8.6-10.4); Carbon Dioxide 25 mmol/L (22-30); Chloride 100 mmol/L (96-108); Eosinophils # (Auto) 0.11 K/mcL (0.00-0.70); Eosinophils % (Auto) 1.8 % (0.0-7.0); Globulin 2.2 gm/dL (2.2-3.7); Glomerular Filtration Rate 99; Glucose 146 mg/dL (70-105); Hemoglobin 8.5 g/dL (13.7-17.5); Lymphocytes % (Auto) 11.4 % (15.5-49.0); Mean Cell Volume 104.2 fL (80.0-100.0); Mean Corpuscular HGB Conc 31.5 g/dL (31.0-36.0); Mean Platelet Volume 8.2 fL (8.8-12.5); Monocytes # (Auto) 0.53 K/mcL (0.10-0.90); Monocytes % (Auto) 8.6 % (1.0-12.0); Neutrophils % (Auto) 76.7 % (38.0-78.0); Platelet Count 280 K/mcL (140-440); RBC 2.59 M/mcL (4.63-6.08); Red Cell Distribution Width 18.3 % (11.5-14.5); WBC 6.2 K/mcL (4.5-11.0)
[2024-03-04] MEDS: PEG 3350/NA SULF,BICARB,CL/KCL 4,000 ML ORAL.SOL PO ONE ×2 (11:28→12:01)
[2024-03-04 14:11] LABS: Basophils # (Auto) 0.08 K/mcL (0.00-0.30); Eosinophils # (Auto) 0.15 K/mcL (0.00-0.70); Eosinophils % (Auto) 1.9 % (0.0-7.0); Hematocrit 25.9 % (40.1-51.0); Hemoglobin 8.2 g/dL (13.7-17.5); Lymphocytes # (Auto) 0.73 K/mcL (1.50-4.80); Lymphocytes % (Auto) 9.2 % (15.5-49.0); Mean Cell Volume 102.8 fL (80.0-100.0); Mean Corpuscular HGB Conc 31.7 g/dL (31.0-36.0); Monocytes # (Auto) 0.69 K/mcL (0.10-0.90); Monocytes % (Auto) 8.7 % (1.0-12.0); Neutrophils % (Auto) 78.8 % (38.0-78.0); Platelet Count 282 K/mcL (140-440); RBC 2.52 M/mcL (4.63-6.08); Red Cell Distribution Width 18.3 % (11.5-14.5); WBC 7.9 K/mcL (4.5-11.0)
[2024-03-04] MEDS ORDERED: KETAMINE 50 MG/ML ML IV PRN (15:14)
[2024-03-04] MEDS ORDERED: PROPOFOL 200 MG/20 ML VIAL IV SCH (15:15)
[2024-03-04] MEDS: PROPOFOL 200 MG/20 ML VIAL IV ONE (15:36)
[2024-03-04] MEDS: MIDAZOLAM 2 MG/2 ML VIAL ONE (15:36)
[2024-03-04] MEDS ORDERED: ONDANSETRON 4 MG/2 ML VIAL IV PRN (17:06)
[2024-03-04] MEDS: MIDAZOLAM 2 MG/2 ML VIAL IV SCH (17:55)
[2024-03-04] MEDS: LACTATED RINGERS 1,000 ML IV SCH (17:55)
[2024-03-04] MEDS: ACETAMINOPHEN 325 MG TABLET PO PRN (18:22)
[2024-03-04] MEDS: oxyCODONE IR 5 MG TABLET PO PRN (18:22)
[2024-03-04] MEDS: PANTOPRAZOLE 80 MG in 0.9 % SODIUM CHLORIDE 100 ML IV SCH (18:43)
[2024-03-04 19:02] LABS: Blood Urea Nitrogen 14 mg/dL (8-23); Carbon Dioxide 27 mmol/L (22-30); Chloride 96 mmol/L (96-108); Glomerular Filtration Rate 99; Glucose 120 mg/dL (70-105)
[2024-03-04] MEDS: 0.9 % SODIUM CHLORIDE 1,000 ML IV SCH (21:30)
[2024-03-04] MEDS: CALCIUM GLUCONATE 4.65 MEQ in DEXTROSE 5% IN WATER 50 ML IV ONE (21:38)
[2024-03-04] MEDS: CALCIUM GLUCONATE 4.65 MEQ/10 ML VIAL ONE (21:38)
[2024-03-04] MEDS: traZODone HCL 100 MG TABLET PO ONE (22:12)
[2024-03-04] MEDS: MELATONIN 3 MG TABLET PO ONE (22:29)
[2024-03-04] MEDS: traZODone HCL 50 MG TABLET ONE (22:29)
[2024-03-05] MEDS: 0.9 % SODIUM CHLORIDE 10 ML SYRINGE IV SCH (00:45)
[2024-03-05 06:43] LABS: Basophils # (Auto) 0.08 K/mcL (0.00-0.30); Basophils % (Auto) 1.3 % (0.0-2.0); Eosinophils # (Auto) 0.22 K/mcL (0.00-0.70); Eosinophils % (Auto) 3.7 % (0.0-7.0); Hematocrit 25.4 % (40.1-51.0); Lymphocytes # (Auto) 0.73 K/mcL (1.50-4.80); Lymphocytes % (Auto) 12.2 % (15.5-49.0); Mean Cell Volume 104.1 fL (80.0-100.0); Mean Corpuscular HGB Conc 31.5 g/dL (31.0-36.0); Mean Platelet Volume 8.4 fL (8.8-12.5); Neutrophils % (Auto) 72.5 % (38.0-78.0); Platelet Count 266 K/mcL (140-440); RBC 2.44 M/mcL (4.63-6.08)
[2024-03-05] MEDS: INSULIN, 75/25 NPL/LISPRO 1 UNIT/0.01 ML UNIT SQ SCH (07:47)
[2024-03-05] MEDS: LEVOTHYROXINE 25 MCG TABLET PO SCH (07:47)
[2024-03-05] MEDS: LEVOTHYROXINE SODIUM 112 MCG TABLET PO SCH (07:47)
[2024-03-05] MEDS ORDERED: NON FORMULARY MEDICATION 1 DOSE MISCELL (Levothyroxine 137 mcg tablet) PO SCH (09:00)
[2024-03-05] MEDS: PANTOPRAZOLE 40 MG TABLET PO SCH (16:06)
[2024-03-05] MEDS ORDERED: PRAZOSIN 1 MG CAPSULE PO SCH (21:00)
[2024-03-05] MEDS ORDERED: traZODone HCL 100 MG TABLET PO SCH ×2 (21:00)
== END 2024-03-05 17:08 ==
LOC: ED 08:18 → SUR 14:50 → MEDSUR 14:50 → SUR 14:56
PROVIDERS: ADMIT Student in an Organized Health Care Education/Training Program; ATTEND Student in an Organized Health Care Education/Training Program

== ENCOUNTER 2025-06-08 14:31 | Observation (INO) ==
[2025-06-08] MEDS ORDERED: IOPAMIDOL 100 ML BOTTLE IV ONE (14:32)
[2025-06-08] MEDS: DEXTROSE 50% 50 ML VIAL IV ONE (16:02)
[2025-06-08] MEDS: HALOPERIDOL LACTATE 5 MG/ML VIAL IM ONE (16:05)
[2025-06-08 16:20] LABS: Basophils # (Auto) 0.05 K/mcL (0.00-0.30); Basophils % (Auto) 0.9 % (0.0-2.0); Eosinophils # (Auto) 0.13 K/mcL (0.00-0.70); Eosinophils % (Auto) 2.4 % (0.0-7.0); Hematocrit 39.8 % (40.1-51.0); Hemoglobin 12.6 g/dL (13.7-17.5); Lymphocytes # (Auto) 1.42 K/mcL (1.50-4.80); Lymphocytes % (Auto) 26.2 % (15.5-49.0); Mean Corpuscular HGB Conc 31.7 g/dL (31.0-36.0); Monocytes # (Auto) 0.46 K/mcL (0.10-0.90); Monocytes % (Auto) 8.5 % (1.0-12.0); Neutrophils % (Auto) 61.3 % (38.0-78.0); Platelet Count 177 K/mcL (140-440); RBC 3.98 M/mcL (4.63-6.08); WBC 5.4 K/mcL (4.5-11.0)
[2025-06-08 16:29] LABS: Alcohol,Blood < 0.010 g/dL (<0.010)
[2025-06-08 16:39] LABS: Creatine Kinase 126 U/L (24-195); Thyroid Stimulating Hormone 2.22 uIU/mL (0.27-5.01)
[2025-06-08] MEDS: 0.9 % SODIUM CHLORIDE 1,000 ML IV ONE (16:53)
[2025-06-08 18:08] LABS: Barbiturate Screen,Urine None detected; Benzodiazepines Screen,Urine None detected; Fentanyl, Urine Screen None Detected; Opiate Screen,Urine Suspect Positive; Oxycodone, Urine Screen None detected; Phencyclidine Screen,Urine None detected
[2025-06-08 18:22] LABS: Bilirubin,Urine Negative (Negative); Calcium Oxalate Crystals,Urine FEW /hpf; Color,Urine YELLOW; Glucose,Urine (UA) Negative (Negative); Ketones,Urine Negative (Negative); Leukocyte Esterase,Urine Negative /uL (Negative); Mucus,Urine MOD /hpf; PH,Urine 5.0 (5.0-9.0); Protein,Urine Negative (Negative); Specific Gravity,Urine 1.021 (1.000-1.035); Urobilinogen,Urine Negative
[2025-06-08 19:14] LABS: ALT/SGPT 22 U/L (<40); AST/SGOT 26 U/L (<40); Albumin 4.1 gm/dL (3.2-5.2); Albumin/Globulin Ratio 1.8 (1.0-2.3); Alkaline Phosphatase 86 U/L (39-117); Anion Gap 15.0 (8.0-16.0); Bilirubin,Total 0.5 mg/dL (0.1-1.0); Blood Urea Nitrogen 19 mg/dL (8-23); Calcium 9.1 mg/dL (8.6-10.4); Carbon Dioxide 23 mmol/L (22-30); Chloride 102 mmol/L (96-108); Globulin 2.3 gm/dL (2.2-3.7); Glucose 54 mg/dL (70-105); Potassium 3.4 mmol/L (3.3-5.1); Sodium 140 mmol/L (133-145)
[2025-06-08] MEDS: DEXTROSE 5%-NS 1,000 ML IV SCH ×2 (20:14→20:35)
[2025-06-08] MEDS ORDERED: DEXTROSE 5% IN WATER 1,000 ML IV SCH (20:15)
[2025-06-08] MEDS ORDERED: ONDANSETRON 4 MG/2 ML VIAL IV PRN (21:50)
[2025-06-08] MEDS ORDERED: DEXTROSE 31 GM ORAL.SUSP PO PRN (21:50)
[2025-06-08] MEDS ORDERED: DEXTROSE 50% 50 ML VIAL IV PRN (21:50)
[2025-06-08] MEDS ORDERED: IPRATROPIUM/ALBUTEROL 3 ML AMPUL.NEB NEB PRN (21:50)
[2025-06-08] MEDS: 0.9 % SODIUM CHLORIDE 10 ML SYRINGE IV SCH (22:19)
[2025-06-08] MEDS: ACETAMINOPHEN 325 MG TABLET PO PRN (22:26)
[2025-06-08] MEDS: SENNOSIDES 1 TABLET PO SCH (22:26)
[2025-06-08] MEDS: DOCUSATE SODIUM 100 MG CAPSULE PO SCH (22:26)
[2025-06-08] MEDS: POTASSIUM CHLORIDE 10 MEQ TABLET PO SCH (22:26)
[2025-06-08] MEDS: INSULIN LISPRO 1 UNIT/0.01 ML UNIT SQ SCH (22:27)
[2025-06-09 00:24] LABS: Iron 33 ug/dL (61-157); TIBC Calculation 133 ug/dl (228-428); Transferrin % Saturation 25 % (20-50)
[2025-06-09 06:31] LABS: Basophils # (Auto) 0.04 K/mcL (0.00-0.30); Basophils % (Auto) 0.5 % (0.0-2.0); Eosinophils # (Auto) 0.11 K/mcL (0.00-0.70); Eosinophils % (Auto) 1.4 % (0.0-7.0); Hematocrit 37.2 % (40.1-51.0); Hemoglobin 12.6 g/dL (13.7-17.5); Lymphocytes # (Auto) 0.80 K/mcL (1.50-4.80); Lymphocytes % (Auto) 10.4 % (15.5-49.0); Mean Corpuscular HGB Conc 33.9 g/dL (31.0-36.0); Monocytes # (Auto) 0.64 K/mcL (0.10-0.90); Monocytes % (Auto) 8.4 % (1.0-12.0); Neutrophils % (Auto) 79.0 % (38.0-78.0); Platelet Count 160 K/mcL (140-440); RBC 3.98 M/mcL (4.63-6.08); WBC 7.7 K/mcL (4.5-11.0)
[2025-06-09] MEDS: IBUPROFEN 600 MG TABLET PO PRN (08:08)
[2025-06-09] MEDS: INSULIN LISPRO 1 UNIT/0.01 ML UNIT SQ SCH (08:09)
[2025-06-09] MEDS: LOPERAMIDE 2 MG CAPSULE PO PRN (10:32)
[2025-06-09] MEDS ORDERED: HYDROcodone/APAP 10/325MG TABLET PO PRN (14:15)
[2025-06-09] MEDS ORDERED: PANTOPRAZOLE 40 MG TABLET PO SCH (17:00)
[2025-06-09] MEDS ORDERED: TAMSULOSIN 0.4 MG CAPSULE PO SCH (21:00)
[2025-06-09] MEDS ORDERED: PRAZOSIN 1 MG CAPSULE PO SCH (21:00)
[2025-06-10] MEDS ORDERED: LEVOTHYROXINE 25 MCG TABLET PO SCH (07:30)
[2025-06-10] MEDS ORDERED: LEVOTHYROXINE SODIUM 112 MCG TABLET PO SCH (07:30)
[2025-06-10] MEDS ORDERED: DONEPEZIL 10 MG TABLET PO SCH (09:00)
[2025-06-10] MEDS ORDERED: ESCITALOPRAM 10 MG TABLET PO SCH (09:00)
== END 2025-06-09 15:06 | disposition home or self-care (01) ==
LOC: MEDSUR 14:31 → ED 14:31 → MEDSUR 22:00
PROVIDERS: ADMIT Internal Medicine; ATTEND Internal Medicine